=== PATIENT | female | born 1975 | race Caucasian/White ===

== ENCOUNTER 2017-08-03 17:28 | Emergency (ER) | payer MEDICAID ==
[2016-04-04 12:59] VITALS: Wt 96.6 kg
[~2017-08-03 17:28] MED LIST: ACET-1966 PO; ACET500T68 PO; ALB0.5 INH; AMLO-104 PO; AZIT500T47 PO; CEF300 PO; CELEXA PO; DM H180L19 PO; DOCU240C84 PO; DOXY-179 PO; ENA10 PO; GUAI-334 PO; HYDR2TAB4 PO; IBU200 PO; IBUP800T37 PO; LEVO-85 PO; LIB PO; LOR5 PO; METO25TA91 PO; NO MEDS; NOR5/325 PO; OND4 PO; OXYC-373 PO; PER PO; PRED20TA6 PO; PROM-110 PO; TOPI25TA PO; TRAZ150T61 PO
--- NOTE | 2017-08-03 17:38 | ER Report ---
History and Physical Time Seen By MD: 17:36 (ALBAN CULLEN MD) HPI/ROS CHIEF COMPLAINT: Urinary burning constipation HISTORY OF PRESENT ILLNESS: 41-year-old female comes mers apparently was several days of increased frequency and burning of urination she also says she was constipated took [id number] had some diarrhea some left lower quadrant suprapubic tenderness otherwise unremarkable says her urination has had a pungent smell to it as well patient denies any fever chills or sweats no flank or kidney discomfort REVIEW OF SYSTEMS: Respiratory: No cough, no dyspnea. Cardiovascular: No chest pain, no palpitations. Gastrointestinal: Suprapubic tenderness increased frequency urination left lower quadrant pain with diarrhea Musculoskeletal: No back pain. Remainder of the 14 system rev: Yes (ALBAN CULLEN MD) Allergies: Coded Allergies: tramadol (Unverified Allergy, Intermediate, SOB, 08/03/17) Home Meds Active Scripts Metronidazole (FLAGYL) 500 Mg Tablet, 500 MG PO BID for infection, #14 TAB Prov:YASMANI MOYAY Zander DO 08/03/17 Ciprofloxacin Hcl (CIPRO) 500 Mg Tablet, 500 MG PO BID for infection, #14 Prov:YASMANI MOYAY Zander DO 08/03/17 Promethazine Hcl (PROMETHAZINE HCL) 25 Mg Tablet, 25 MG PO Q4H Y for NAUSEA/ VOMITING, #12 TAB Prov:SILVA MOYA DO 08/03/17 Oxycodone Hcl/Acetaminophen (PERCOCET 5-325 MG TABLET) 1 Each Tablet, 1 EACH PO Q4-6H Y for PAIN, #12 Prov:SILVA MOYA DO 08/03/17 Amlodipine Besylate (NORVASC) 10 Mg Tablet, 1 TAB PO QDAY, #30 TAB Prov:LINDSEY LEON MD 04/09/16 Discontinued Reported Medications Docusate Calcium (SURFAK) 240 Mg Capsule, 240 MG PO BID, CAPSULE 04/03/16 Oxycodone Hcl/Acetaminophen (OXYCODONE-ACETAMINOPHEN 5-325) 1 Each Tablet, 1-2 EACH PO Q4H, TAB 04/03/16 Discontinued Scripts Oxycodone Hcl/Acetaminophen (OXYCODONE-ACETAMINOPHEN 5-325) 1 Each Tablet, 1-2 EACH PO Q4H Y for PAIN, #30 TAB TAKE 1-2 TABLET NEEDED FOR PAIN - NO CLOSER THAN EVERY 4 HOURS. Prov:LINDSEY LEON MD 04/09/16 Promethazine Hcl (PROMETHAZINE HCL) 25 Mg Tablet, 25 MG PO Q8H, #20 TAB Prov:LINDSEY LEON MD 04/09/16 Cefdinir 300 Mg Cap (OMNICEF 300 MG CAP (OR EQUIV)) 300 Mg Capsule, 300 MG PO BID, #10 CAPSULE Prov:LINDSEY LEON MD 04/09/16 Ibuprofen (IBUPROFEN) 800 Mg Tablet, 1 TAB PO Q8H, #30 TAB Take with food every 8 hours. Prov:LINDSEY LEON MD 03/23/16 Reviewed Nurses Notes: Yes Old Medical Records Reviewed: Yes (ALBAN CULLEN MD) Hx Smoking: Yes Smoking Status: Current: Every Day Smoker Exposure to Second Hand Smoke?: Yes Hx Substance Use Disorder: No Hx Alcohol Use: Yes (ALBAN CULLEN MD) Constitutional Vital Sign - Last 24 Hours 08/03/17 08/03/17 08/03/17 08/03/17 17:35 17:43 17:58 18:00 Temp 98.3 Pulse 91 86 89 Resp 24 B/P (MAP) 192/121 173/116 (135) Pulse Ox 93 93 91 O2 Delivery Room Air 08/03/17 08/03/17 08/03/17 08/03/17 18:13 18:18 18:30 18:33 Pulse 84 81 79 B/P (MAP) 161/112 (128) Pulse Ox 90 93 96 08/03/17 18:49 Pulse 75 B/P (MAP) 166/126 (139) Pulse Ox 94 O2 Delivery Room Air (SILVA MOYA DO) Physical Exam General Appearance: The patient is alert, has no immediate need for airway protection and no current signs of toxicity. Appears uncomfortable Eyes: Pupils equal and round no injection. Respiratory: Chest is non tender, lungs are clear to auscultation. Cardiac: regular rate and rhythm [ ] Gastrointestinal: Abdomen soft with some mild tenderness in the suprapubic and left lower quadrant region no rebound guarding or masses otherwise unremarkable Musculoskeletal: Neck: Neck is supple and non tender. Extremities have full range of motion and are non tender. Skin: No rashes or lesions. [ ] DIFFERENTIAL DIAGNOSIS: After history and physical exam differential diagnosis was considered for UTI constipation diverticulitis (ALBAN CULLEN MD) Medical Decision Making Data Points Laboratory Hematology Test 08/03/17 17:32 Urine Color Karen Urine Clarity Slightly-cloudy Urine pH 5.0 pH (4.8-9.5) Urine Specific [place] 1.033 Urine Protein 100 mg/dL (NEGATIVE) Urine Glucose (UA) Negative mg/dL (NEGATIVE) Urine Ketones Trace mg/dL (NEGATIVE) Urine Blood Small (NEGATIVE) Urine Nitrite Negative (NEGATIVE) Urine Bilirubin Small (NEGATIVE) Urine Urobilinogen 2.0 mg/dL (0.2-1.9) Urine Leukocyte Esterase Negative (NEGATIVE) Urine RBC 5 /HPF (0-2/HPF) Urine WBC 2 /HPF (0-5/HPF) Urine Squamous Epithelial Cells Many /LPF (</=FEW) Urine Bacteria Negative /HPF (NONE-FEW) Urine Hyaline Casts Few /LPF (NONE-FEW) Urine Mucus Few /HPF (NONE-FEW) Chemistry Test 08/03/17 17:32 Urine Color Karen Urine Clarity Slightly-cloudy Urine pH 5.0 pH (4.8-9.5) Urine Specific [place] 1.033 Urine Protein 100 mg/dL (NEGATIVE) Urine Glucose (UA) Negative mg/dL (NEGATIVE) Urine Ketones Trace mg/dL (NEGATIVE) Urine Blood Small (NEGATIVE) Urine Nitrite Negative (NEGATIVE) Urine Bilirubin Small (NEGATIVE) Urine Urobilinogen 2.0 mg/dL (0.2-1.9) Urine Leukocyte Esterase Negative (NEGATIVE) Urine RBC 5 /HPF (0-2/HPF) Urine WBC 2 /HPF (0-5/HPF) Urine Squamous Epithelial Cells Many /LPF (</=FEW) Urine Bacteria Negative /HPF (NONE-FEW) Urine Hyaline Casts Few /LPF (NONE-FEW) Urine Mucus Few /HPF (NONE-FEW) Urinalysis Test 08/03/17 17:32 Urine Color Karen Urine Clarity Slightly-cloudy Urine pH 5.0 pH (4.8-9.5) Urine Specific [place] 1.033 Urine Protein 100 mg/dL (NEGATIVE) Urine Glucose (UA) Negative mg/dL (NEGATIVE) Urine Ketones Trace mg/dL (NEGATIVE) Urine Blood Small (NEGATIVE) Urine Nitrite Negative (NEGATIVE) Urine Bilirubin Small (NEGATIVE) Urine Urobilinogen 2.0 mg/dL (0.2-1.9) Urine Leukocyte Esterase Negative (NEGATIVE) Urine RBC 5 /HPF (0-2/HPF) Urine WBC 2 /HPF (0-5/HPF) Urine Squamous Epithelial Cells Many /LPF (</=FEW) Urine Bacteria Negative /HPF (NONE-FEW) Urine Hyaline Casts Few /LPF (NONE-FEW) Urine Mucus Few /HPF (NONE-FEW) (YASMANI MOYADominic Fermin DO) EKG/Imaging Imaging X-ray: KUB was obtained. I viewed the images myself on the PACS system. My interpretation of the images is: Nonspecific bowel gas pattern, no evidence of constipation, no evidence of obstruction. The radiologist interpretation had no clinically significant variation from this interpretation. (SILVA MOYA DO) ED Course/Re-evaluation ED Course Care was assumed at shift change with diagnostic KUB pending from Dr. Cullen. Her KUB was unremarkable. Patient was having significant left lower quadrant pain and tenderness. I suspicious she has diverticulitis. She'll be treated with Cipro, Flagyl, Phenergan and Percocet. She is advised a clear liquid diet for 24-48 hours. Patient was advised to follow-up with her primary care doctor if unimproved in 2-3 days. Decision to Disposition Date: Aug 03, 2017 Decision to Disposition Time: 18:38 (SILVA MOYA DO) Depart Departure Latest Vital Signs Vital Signs Date Time Temp Pulse Resp B/P (MAP) Pulse Ox O2 Delivery O2 Flow Rate FiO2 08/03/17 18:49 75 166/126 (139) 94 Room Air 08/03/17 17:35 98.3 24 (SILVA MOYA DO) Impression: Primary Impression: Abdominal pain, left lower quadrant Additional Impression: Diverticulitis Condition: Improved Disposition: HOME OR SELF-CARE Referrals: SAADIA HENRY MD, FARRUKH MD New Scripts Metronidazole (FLAGYL) 500 Mg Tablet 500 MG PO BID for infection, #14 TAB Prov: SILVA MOYA DO 08/03/17 Ciprofloxacin Hcl (CIPRO) 500 Mg Tablet 500 MG PO BID for infection, #14 Prov: SILVA MOYA DO 08/03/17 Promethazine Hcl (PROMETHAZINE HCL) 25 Mg Tablet 25 MG PO Q4H Y for NAUSEA/VOMITING, #12 TAB Prov: SILVA MOYA DO 08/03/17 Oxycodone Hcl/Acetaminophen (PERCOCET 5-325 MG TABLET) 1 Each Tablet 1 EACH PO Q4-6H Y for PAIN, #12 Prov: SILVA MOYA DO 08/03/17 Patient Instructions: Clear Liquid Diet (ED), Diverticulitis (ED) Additional Instructions: Follow clear liquid diet for 24-48 hours and advance to the brat diet for 24 hours Avoid fatty food, greasy food vegetables and dairy products for at least 48 hours Take ibuprofen 200 mg 3 tablets 3 times a day for pain relief Follow-up with your primary care if unimproved in 3-5 days Return to the ER for any worsening Problem Qualifiers ALBAN CULLEN MD Aug 03, 2017 17:38 SILVA MOYA DO Aug 03, 2017 18:39
[2017-08-03] MEDS ORDERED: PROMETHAZINE HCL 25 MG TAB PO ONE (18:40)
[2017-08-03] MEDS ORDERED: CIPROFLOXACIN 500 MG TAB PO ONE (18:40)
[2017-08-03] MEDS ORDERED: METRONIDAZOLE 500 MG TABLET PO ONE (18:40)
[2017-08-03] MEDS ORDERED: PROM-110 PO (18:42)
[2017-08-03] MEDS ORDERED: OXYC-865 PO (18:42)
[2017-08-03] MEDS ORDERED: METR-1 PO (18:42)
[2017-08-03] MEDS ORDERED: CIPR-344 PO (18:42)
--- NOTE | 2017-08-03 18:48 | RADIOLOGY IMAGING REPORT ---
FACILITY: [facility] [place] PATIENT NAME: Veronica Salazar : 1975 MR: [id number] V: [id number] EXAM DATE: ORDERING PHYSICIAN: ALBAN CULLEN TECHNOLOGIST: Location: [facility] [place] Patient: Veronica Salazar : 1975 Visit/Account:[id number] Date of Sevice: 08/03/2017 EXAMINATION: Abdominal radiograph single view HISTORY: Constipation. COMPARISON: CT abdomen and pelvis from 04/03/2016. FINDINGS: 2 AP supine views of the abdomen are obtained. Lines/tubes: None. Bowel gas pattern: Bowel gas is present in nondistended loops of small and large bowel. Small amount of stool in the right side of the colon. Soft tissues: Surgical clips in the right upper quadrant. Bony structures: Negative. Visualized lung bases: Negative. IMPRESSION: 1. Normal bowel gas pattern. 2. Small amount of stool in the right side of the colon. Report Dictated By: Dee Orozco MD at 08/03/2017 6:42 PM Report E-Signed By: Dee Orozco MD at 08/03/2017 6:44 PM WSN:[id number]
[2017-08-03 18:49] VITALS: BP 166/126
== END 2017-08-03 18:55 | disposition home or self-care (01) ==
LOC: ER 17:51
DX: K57.92 Diverticulitis of intestine, part unspecified, without perforation or abscess without bleeding (principal); R10.32 Left lower quadrant pain
CPT/HCPCS: 74018; 81001; 99283; Q0169

== ENCOUNTER 2017-08-24 14:25 | Emergency (ER) | payer MEDICAID ==
[2016-04-04 12:59] VITALS: Wt 83.9 kg
[~2017-08-24 14:25] MED LIST changes: +CIPR-344 PO; +METR-1 PO; +OXYC-865 PO
[2017-08-24] MEDS ORDERED: NS(*) 0.9% 1000 ML BAG 1,000 ML IV ONE (15:05)
[2017-08-24 15:15] LABS: PLATELET COUNT, AUTOMATED 566 K/uL (150-450)
[2017-08-24] MEDS ORDERED: IOPAMIDOL 76% 75 ML INFUS BTL 75 ML ONE (15:21)
--- NOTE | 2017-08-24 15:22 | ER Report ---
History and Physical Time Seen By MD: 14:45 Hx. of Stated Complaint: COMPLETED TREATMENT FOR DIVERTICULITIS APPROX 2 WEEKS AGO. REPORTS THAT PAIN IS ON LEFT SIDE OF ABDOMIN AND FEELS THAT THIS IS A FLARE OF IT AGAIN. HPI/ROS CHIEF COMPLAINT: Abdominal pain HISTORY OF PRESENT ILLNESS: 42 yo female presents to ER with complaints of mid left abdominal pain x 4 days. Describes the pain as dull and achy. States that she had similar pain in July, and was seen in ED and treated for diverticulitis. Pt reports one episode of diarrhea last night otherwise has regular BM. Pt states she vomiting once last night and has since been nauseated. REVIEW OF SYSTEMS: Respiratory: No cough, no dyspnea. Cardiovascular: No chest pain, no palpitations. Gastrointestinal: States vomiting last night, complaints of left abdominal pain. Musculoskeletal: No back pain. Genitourinary: Denies dysuria, frequency, or urgency. 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 08/24/17 Amoxicillin/Pot Clav 875-125 Mg Tab (AUGMENTIN 875-125 TABLET) 1 Each Tablet, 1 TAB PO TID, #42 TAB Prov:NICOLÁS TSE 08/24/17 Amlodipine Besylate (NORVASC) 10 Mg Tablet, 1 TAB PO QDAY, #30 TAB Prov:LINDSEY LEON MD 04/09/16 Discontinued Scripts Metronidazole (FLAGYL) 500 Mg Tablet, 500 MG PO BID for infection, #14 TAB Prov:SILVA MOYA DO 08/03/17 Ciprofloxacin Hcl (CIPRO) 500 Mg Tablet, 500 MG PO BID for infection, #14 Prov:SILVA MOYA DO 08/03/17 Promethazine Hcl (PROMETHAZINE HCL) 25 Mg Tablet, 25 MG PO Q4H Y for NAUSEA/ VOMITING, #12 TAB Prov:SILVA MOYA DO 08/03/17 Oxycodone Hcl/Acetaminophen (PERCOCET 5-325 MG TABLET) 1 Each Tablet, 1 EACH PO Q4-6H Y for PAIN, #12 Prov:SILVA MOYA DO 08/03/17 Past Medical/Surgical History Patient has a past medical history of seizures, migraine, hypertension, bronchitis, respiratory failure, cholecystitis, appendicitis, reflux, uterine cyst, back pain, marijuana abuse, alcohol abuse, depression, eating disorder. Patient has a surgical history of cholecystectomy, appendectomy, hysterectomy, tubal ligation. Patient has a family medical history of cancer. Reviewed Nurses Notes: Yes Hx Smoking: Yes Smoking Status: Current: Every Day Smoker Exposure to Second Hand Smoke?: Yes Hx Substance Use Disorder: Yes (Previous marijuana use age 25) Hx Alcohol Use: Yes Constitutional Vital Sign - Last 24 Hours 08/24/17 08/24/17 08/24/17 08/24/17 14:37 14:40 14:46 15:00 Temp 97.9 Pulse 89 84 Resp 18 B/P (MAP) 162/137 162/137 (145) 170/129 (143) 159/108 (125) Pulse Ox 95 92 O2 Delivery Room Air 08/24/17 08/24/17 08/24/17 08/24/17 15:15 15:45 16:00 16:15 Pulse 74 B/P (MAP) 151/127 (135) 152/109 (123) 178/128 (145) 157/113 (128) Pulse Ox 97 08/24/17 08/24/17 08/24/17 08/24/17 16:30 16:49 17:00 17:15 Pulse 73 74 B/P (MAP) 150/114 (126) 155/127 (136) 174/117 (136) 166/109 (128) Pulse Ox 92 95 Intake and Output 08/24/17 08/24/17 08/25/17 15:00 23:00 07:00 Intake Total 1100 ml Balance 1100 ml Physical Exam General Appearance: The patient is alert, has no immediate need for airway protection and no current signs of toxicity. Eyes: Pupils equal and round no injection. Respiratory: Chest is non tender, lungs diminished throughout, auscultated rhonchi to right lower lobe. Cardiac: regular rate and rhythm Gastrointestinal: Abdomen is soft and tender with light palpation and guarding of left upper quadrant, no masses, organomegaly, bowel sounds normal. Negative CVA tenderness. Musculoskeletal: Full active and passive ROM of all joints. Neck: Neck is supple and non tender. Extremities have full range of motion and are non tender. Skin: No rashes or lesions. DIFFERENTIAL DIAGNOSIS: After history and physical exam differential diagnosis was considered for acute diverticulitis, bowel obstruction, Medical Decision Making Data Points Result Diagram: 08/24/17 1445 08/24/17 1445 Laboratory Hematology Test 08/24/17 14:34 08/24/17 14:45 Urine Color Karen Urine Clarity Slightly-cloudy Urine pH 5.0 pH (4.8-9.5) Urine Specific [place] 1.026 Urine Protein 100 mg/dL (NEGATIVE) Urine Glucose (UA) Negative mg/dL (NEGATIVE) Urine Ketones Trace mg/dL (NEGATIVE) Urine Blood Small (NEGATIVE) Urine Nitrite Negative (NEGATIVE) Urine Bilirubin Negative (NEGATIVE) Urine Urobilinogen 4.0 mg/dL (0.2-1.9) Urine Leukocyte Esterase Negative (NEGATIVE) Urine RBC 5 /HPF (0-2/HPF) Urine WBC 3 /HPF (0-5/HPF) Urine Squamous Epithelial Cells Many /LPF (</=FEW) Urine Bacteria Negative /HPF (NONE-FEW) Urine Mucus Few /HPF (NONE-FEW) Red Blood Count 6.43 M/uL (4.17-5.56) Mean Corpuscular Volume 86.8 fL (80.0-96.0) Mean Corpuscular Hemoglobin 30.4 pg (26.0-33.0) Mean Corpuscular Hemoglobin Concent 35.0 g/dL (32.0-36.0) Red Cell Distribution Width 14.5 % (11.5-14.5) Mean Platelet Volume 8.4 fL (7.2-11.1) Neutrophils (%) (Auto) 69.6 % (39.4-72.5) Lymphocytes (%) (Auto) 20.1 % (17.6-49.6) Monocytes (%) (Auto) 7.8 % (4.1-12.4) Eosinophils (%) (Auto) 2.1 % (0.4-6.7) Basophils (%) (Auto) 0.4 % (0.3-1.4) Nucleated RBC Relative Count (auto) 0.1 /100WBC Neutrophils # (Auto) 6.6 K/uL (2.0-7.4) Lymphocytes # (Auto) 1.9 K/uL (1.3-3.6) Monocytes # (Auto) 0.7 K/uL (0.3-1.0) Eosinophils # (Auto) 0.2 K/uL (0.0-0.5) Basophils # (Auto) 0.0 K/uL (0.0-0.1) Nucleated RBC Absolute Count (auto) 0.01 K/uL Peripheral Blood Smear Yes Y/N Sodium Level 137 mmol/L (137-145) Potassium Level 3.0 mmol/L (3.5-5.0) Chloride Level 97 mmol/L (98-107) Carbon Dioxide Level 26 mmol/L (22-31) Blood Urea Nitrogen 6 mg/dl (7-18) Creatinine 0.60 mg/dl (0.52-1.04) Glomerular Filtration Rate Calc > 60.0 Random Glucose 103 mg/dl (75-110) Calcium Level 9.7 mg/dl (8.4-10.2) Total Bilirubin 0.9 mg/dl (0.2-1.3) Aspartate Amino Transf (AST/SGOT) 50 U/L (0-35) Alanine Aminotransferase (ALT/SGPT) 42 U/L (0-56) Alkaline Phosphatase 96 U/L (0-126) Total Protein 9.0 gm/dl (6.3-8.2) Albumin 4.5 g/dl (3.5-5.0) Amylase Level 63 U/L (0-110) Lipase 41 U/L (23-300) Helicobacter pylori IgG Antibody Negative (NEGATIVE) Chemistry Test 08/24/17 14:34 08/24/17 14:45 Urine Color Karen Urine Clarity Slightly-cloudy Urine pH 5.0 pH (4.8-9.5) Urine Specific [place] 1.026 Urine Protein 100 mg/dL (NEGATIVE) Urine Glucose (UA) Negative mg/dL (NEGATIVE) Urine Ketones Trace mg/dL (NEGATIVE) Urine Blood Small (NEGATIVE) Urine Nitrite Negative (NEGATIVE) Urine Bilirubin Negative (NEGATIVE) Urine Urobilinogen 4.0 mg/dL (0.2-1.9) Urine Leukocyte Esterase Negative (NEGATIVE) Urine RBC 5 /HPF (0-2/HPF) Urine WBC 3 /HPF (0-5/HPF) Urine Squamous Epithelial Cells Many /LPF (</=FEW) Urine Bacteria Negative /HPF (NONE-FEW) Urine Mucus Few /HPF (NONE-FEW) White Blood Count 9.5 k/uL (4.5-11.0) Red Blood Count 6.43 M/uL (4.17-5.56) Hemoglobin 19.5 g/dL (12.0-16.0) Hematocrit 55.8 % (34.0-47.0) Mean Corpuscular Volume 86.8 fL (80.0-96.0) Mean Corpuscular Hemoglobin 30.4 pg (26.0-33.0) Mean Corpuscular Hemoglobin Concent 35.0 g/dL (32.0-36.0) Red Cell Distribution Width 14.5 % (11.5-14.5) Platelet Count 566 K/uL (150-450) Mean Platelet Volume 8.4 fL (7.2-11.1) Neutrophils (%) (Auto) 69.6 % (39.4-72.5) Lymphocytes (%) (Auto) 20.1 % (17.6-49.6) Monocytes (%) (Auto) 7.8 % (4.1-12.4) Eosinophils (%) (Auto) 2.1 % (0.4-6.7) Basophils (%) (Auto) 0.4 % (0.3-1.4) Nucleated RBC Relative Count (auto) 0.1 /100WBC Neutrophils # (Auto) 6.6 K/uL (2.0-7.4) Lymphocytes # (Auto) 1.9 K/uL (1.3-3.6) Monocytes # (Auto) 0.7 K/uL (0.3-1.0) Eosinophils # (Auto) 0.2 K/uL (0.0-0.5) Basophils # (Auto) 0.0 K/uL (0.0-0.1) Nucleated RBC Absolute Count (auto) 0.01 K/uL Peripheral Blood Smear Yes Y/N Glomerular Filtration Rate Calc > 60.0 Calcium Level 9.7 mg/dl (8.4-10.2) Total Bilirubin 0.9 mg/dl (0.2-1.3) Aspartate Amino Transf (AST/SGOT) 50 U/L (0-35) Alanine Aminotransferase (ALT/SGPT) 42 U/L (0-56) Alkaline Phosphatase 96 U/L (0-126) Total Protein 9.0 gm/dl (6.3-8.2) Albumin 4.5 g/dl (3.5-5.0) Amylase Level 63 U/L (0-110) Lipase 41 U/L (23-300) Helicobacter pylori IgG Antibody Negative (NEGATIVE) Urinalysis Test 08/24/17 14:34 Urine Color Karen Urine Clarity Slightly-cloudy Urine pH 5.0 pH (4.8-9.5) Urine Specific [place] 1.026 Urine Protein 100 mg/dL (NEGATIVE) Urine Glucose (UA) Negative mg/dL (NEGATIVE) Urine Ketones Trace mg/dL (NEGATIVE) Urine Blood Small (NEGATIVE) Urine Nitrite Negative (NEGATIVE) Urine Bilirubin Negative (NEGATIVE) Urine Urobilinogen 4.0 mg/dL (0.2-1.9) Urine Leukocyte Esterase Negative (NEGATIVE) Urine RBC 5 /HPF (0-2/HPF) Urine WBC 3 /HPF (0-5/HPF) Urine Squamous Epithelial Cells Many /LPF (</=FEW) Urine Bacteria Negative /HPF (NONE-FEW) Urine Mucus Few /HPF (NONE-FEW) EKG/Imaging Imaging COMPUTED TOMOGRAPHY OF THE Abdomen and Pelvis with CONTRAST INDICATION: Abdominal pain. TECHNIQUE: Contiguous axial 3.[address] images were obtained through the abdomen and pelvis after the administration of 75 cc [id number]-[id number]. Coronal and sagittal reformatted images were submitted. COMPARISON: CT of November 22, 2008. FINDINGS: Lung bases: The lung bases are clear Liver and hepatic vasculature: No focal liver lesion. Gallbladder and bile ducts: Surgically absent gallbladder. Spleen: Normal Pancreas: Normal Adrenals: Normal Kidneys, ureters and bladder: Normal Retroperitoneum and aorta: Minimal atherosclerosis of the aorta. GI tract, mesentery and peritoneum: Diverticulitis of the left colon with moderate inflammation in the adjacent mesentery but no perforation or abscess. Series 2 image 81. There are innumerable sigmoid diverticula. Uterus and adnexa: No abnormal mass or fluid collection. Bones and soft tissues: No acute osseous abnormality. Moderate pubic symphysis arthrosis. IMPRESSION: Uncomplicated diverticulitis of the descending colon. One of the following dose optimization techniques was utilized in the performance of this exam: Automated exposure control; adjustment of the mA and/ or kV according to the patient's size; or use of an iterative reconstruction technique. Specific details can be referenced in the facility's radiology CT exam operational policy. Report Dictated By: Katie Haro MD at 08/24/2017 3:58 PM Report E-Signed By: Katie Haro MD at 08/24/2017 4:02 PM 2 VIEWS CHEST INDICATION: Cough. History of smoking. COMPARISON: 03/28/2016. FINDINGS: Cardiomediastinal silhouette and pulmonary vessels within normal limits. There is no focal infiltrate or lobar consolidation. There is no pneumothorax or pleural effusion. No nodule. Upper abdomen is unremarkable. Contrast in the urinary system mostly from recent exam. No acute bony abnormality. IMPRESSION: 1. No acute cardiopulmonary process. Report Dictated By: Wilber Valladares at 08/24/2017 3:50 PM Report E-Signed By: Wilber Valladares at 08/24/2017 3:52 PM ED Course/Re-evaluation ED Course Patient was admitted to exam room, history and physical were obtained. Differential diagnoses were considered. On examination patient had tenderness to the left abdomen. An IV was started, CBC, CMP, urinalysis were obtained. Lab results were unremarkable. CT scan of abdomen and pelvis was done which showed an uncomplicated diverticulitis of the descending colon. Discussed findings with patient. Due to the recent treatment of diverticulitis with no resolution I did discuss the case with Dr. Lou. He recommended changing her to a different antibiotic, and having her follow-up as outpatient. She is to return to emergency room if condition worsens. I discussed this with the patient. Patient did receive a 3 g dose of Unasyn here in the emergency room. We will also have her start taking Augmentin 875/125 3 times a day 14 days. We'll also discharge her home with medication for nausea as well as limited supply of pain medication. Patient verbalized understanding and agreement with plan. Decision to Disposition Date: Aug 24, 2017 Decision to Disposition Time: 17:38 Depart Departure Latest Vital Signs Vital Signs Date Time Temp Pulse Resp B/P (MAP) Pulse Ox O2 Delivery O2 Flow Rate FiO2 08/24/17 17:15 166/109 (128) 08/24/17 17:00 74 95 08/24/17 14:37 97.9 18 Room Air Impression: Primary Impression: Diverticulitis Condition: Improved Disposition: HOME OR SELF-CARE New Scripts Ondansetron (ZOFRAN ODT) 4 Mg Tab.rapdis 4 MG PO Q6H Y for NAUSEA/VOMITING, #20 TAB.RPETTY Prov: NICOLÁS TES 08/24/17 Oxycodone Hcl/Acetaminophen (PERCOCET 5-325 MG TABLET) 1 Each Tablet 1 EACH PO Q4-6H Y for PAIN, #20 TAB Prov: NICOLÁS TSE 08/24/17 Amoxicillin/Pot Clav 875-125 Mg Tab (AUGMENTIN 875-125 TABLET) 1 Each Tablet 1 TAB PO TID, #42 TAB Prov: NICOLÁS TSE 08/24/17 Patient Instructions: Diverticulitis (ED) Additional Instructions: Limit activity by pain. Get plenty of rest. Increase fluid intake. Take the antibiotics as directed. If condition worsens, return to the ER. Follow up with Dr. Lou in the next week. NICOLÁS TSE Aug 24, 2017 15:22
--- NOTE | 2017-08-24 15:57 | RADIOLOGY IMAGING REPORT ---
FACILITY: [facility] PATIENT NAME: Veronica Salazar : 1975 MR: [id number] V: [id number] EXAM DATE: ORDERING PHYSICIAN: NICOLÁS TSE TECHNOLOGIST: Location: [facility] - [place] Patient: Veronica Salazar : 1975 Visit/Account:[id number] Date of Sevice: 08/24/2017 2 VIEWS CHEST INDICATION: Cough. History of smoking. COMPARISON: 03/28/2016. FINDINGS: Cardiomediastinal silhouette and pulmonary vessels within normal limits. There is no focal infiltrate or lobar consolidation. There is no pneumothorax or pleural effusion. No nodule. Upper abdomen is unremarkable. Contrast in the urinary system mostly from recent exam. No acute bony abnormality. IMPRESSION: 1. No acute cardiopulmonary process. Report Dictated By: Wilber Valladares at 08/24/2017 3:50 PM Report E-Signed By: Wilber Valladares at 08/24/2017 3:52 PM WSN:[id number]
--- NOTE | 2017-08-24 16:05 | RADIOLOGY IMAGING REPORT ---
[facility] PATIENT NAME: Veronica Salazar : 1975 MR: [id number] V: [id number] EXAM DATE: ORDERING PHYSICIAN: NICOLÁS TSE TECHNOLOGIST: Location: [facility] Patient: Veronica Salazar : 1975 Visit/Account:[id number] Date of Sevice: 08/24/2017 COMPUTED TOMOGRAPHY OF THE Abdomen and Pelvis with CONTRAST INDICATION: Abdominal pain. TECHNIQUE: Contiguous axial 3.[address] images were obtained through the abdomen and pelvis after the administration of 75 cc Isovue-370. Coronal and sagittal reformatted images were submitted. COMPARISON: CT of November 22, 2008. FINDINGS: Lung bases: The lung bases are clear Liver and hepatic vasculature: No focal liver lesion. Gallbladder and bile ducts: Surgically absent gallbladder. Spleen: Normal Pancreas: Normal Adrenals: Normal Kidneys, ureters and bladder: Normal Retroperitoneum and aorta: Minimal atherosclerosis of the aorta. GI tract, mesentery and peritoneum: Diverticulitis of the left colon with moderate inflammation in th e adjacent mesentery but no perforation or abscess. Series 2 image 81. There are innumerable sigmoid diverticula. Uterus and adnexa: No abnormal mass or fluid collection. Bones and soft tissues: No acute osseous abnormality. Moderate pubic symphysis arthrosis. IMPRESSION: Uncomplicated diverticulitis of the descending colon. One of the following dose optimization techniques was utilized in the performance of this exam: Autom ated exposure control; adjustment of the mA and/or kV according to the patient's size; or use of an i terative reconstruction technique. Specific details can be referenced in the facility's radiology C T exam operational policy. Report Dictated By: Katie Haro MD at 08/24/2017 3:58 PM Report E-Signed By: Katie Haro MD at 08/24/2017 4:02 PM WSN:[id number]
[2017-08-24] MEDS ORDERED: MORPHINE 4 MG/ML SDV IVP ONE (16:55)
[2017-08-24] MEDS ORDERED: AMPICILLIN/SULBACT (*) 3 GM VL 3 GM in NS(*) 0.9% 100 ML BAG 100 ML IVPB ONE (17:05)
[2017-08-24 17:15] VITALS: BP 166/109
[2017-08-24] MEDS ORDERED: ONDA4TAB PO (17:36)
[2017-08-24] MEDS ORDERED: AMOX-559 PO (17:36)
[2017-08-24] MEDS ORDERED: OXYC-865 PO (17:36)
== END 2017-08-24 18:06 | disposition home or self-care (01) ==
LOC: ER 14:26
DX: K57.32 Diverticulitis of large intestine without perforation or abscess without bleeding (principal)
CPT/HCPCS: 71046; 74177; 81001; 82150; 83690; 85025; 86677; 96361; 96365; 96375; 99284; J0295; J2270; J7030; J7050; Q9967; 82040; 82247; 82310; 82374; 82435; 82565; 82947; 84075; 84132; 84155; 84295; 84450; 84460; 84520

== ENCOUNTER 2017-09-03 15:16 | Inpatient (IN) | payer MEDICAID ==
[~2017-09-03] VITALS: Ht 154.9 cm; Wt 82.6 kg
[~2017-09-03 15:16] MED LIST changes: +AMOX-559 PO; +ONDA4TAB PO
[2017-09-03 15:30] VITALS: BP 174/137
[2017-09-03] MEDS ORDERED: NALOXONE HCL 0.4 MG/ML VIAL IVP PRN (15:50)
[2017-09-03] MEDS: NORMOSOL R SOLN(*) 1000 ML BAG 1,000 ML IV PRN (16:07)
[2017-09-03] MEDS: PIPERACILLIN/TAZO*3.375GM VIAL 3.375 GM in NS(*) 0.9% 100 ML ADDVANT BAG 100 ML IVPB SCH ×2 (16:08→21:16)
[2017-09-03] MEDS: MORPHINE 1 MG/ML 30 ML PCA IV PRN (16:12)
[2017-09-03 16:17] LABS: PLATELET COUNT, AUTOMATED 363 K/uL (150-450)
[2017-09-03] MEDS ORDERED: ONDANSETRON 4 MG/2 ML VIAL IVP ONE (16:20)
[2017-09-03] MEDS ORDERED: ONDANSETRON 4 MG/2 ML VIAL ONE (16:22)
[2017-09-03] MEDS ORDERED: IOPAMIDOL 76% 75 ML INFUS BTL 75 ML ONE (16:34)
--- NOTE | 2017-09-03 17:00 | RADIOLOGY IMAGING REPORT ---
FACILITY: [facility] PATIENT NAME: Veronica Salazar : 1975 MR: [id number] V: [id number] EXAM DATE: ORDERING PHYSICIAN: NARESH WOOD TECHNOLOGIST: Location: [facility] Patient: Veronica Salazar : 1975 Visit/Account:[id number] Date of Sevice: 09/03/2017 ABDOMEN/PELVIS WITH CONTRAST HISTORY: diverticulitis, lower abdomen pain x1 month TECHNIQUE: Following administration of IV contrast contiguous axial images acquired through the abdom en/pelvis. Coronal and sagittal reformatting also performed. Dose Lowering Technique One of the following dose optimization techniques was utilized in the performance of this exam: Autom ated exposure control; adjustment of the mA and/or kV according to the patient's size; or use of an i terative reconstruction technique. Specific details can be referenced in the facility's radiology C T exam operational policy. CONTRAST: 75 mL Isovue-370 COMPARISON: August 24, 2017 FINDINGS: Visualized lung bases: There are scattered groundglass opacities in the lower lung rivera which may b e secondary to mild dependent change or developing infectious/inflammatory process Hepatobiliary: Post surgical changes from a cholecystectomy Spleen: Negative. Adrenals: Negative. Pancreas: Negative. Kidneys ureters or bladder: Negative. Genitalia: Hysterectomy GI: Scattered diverticula seen throughout the colon most prominent in the descending colon. There h as been almost complete clearing of the inflammatory changes seen adjacent to the descending colon fr om prior diverticulitis. Only minimal fat stranding remains in this location Moderate hiatal hernia with fluid noted in the distal esophagus likely related to gastroesophageal re flux Vessels/spaces/nodes: Negative. Bones/soft tissues: Periumbilical hernia containing fat Additional findings: None pertinent. IMPRESSION: Scattered diverticula are seen throughout the colon most prominent in the descending colon. There morrell s been almost complete clearing of the inflammatory change seen adjacent to the descending colon from prior diverticulitis. Only minimal fat stranding remains in this location Moderate hiatal hernia with fluid noted in the distal esophagus likely related to gastroesophageal re flux Periumbilical hernia containing fat Scattered groundglass opacities in the lower lung rivera which may be secondary to mild dependent suraj nge or developing infectious/inflammatory process Report Dictated By: Hayley Iqbal MD at 09/03/2017 4:48 PM Report E-Signed By: Hayley Iqbal MD at 09/03/2017 4:57 PM WSN:[email or web address]
[2017-09-03 18:16] VITALS: BP 168/114
--- NOTE | 2017-09-03 18:56 | General Surgery Progress Note ---
Subjective Progress Notes Subjective pt with severe left lower quadrant pain Physical Exam Vital Signs Date Time Temp Pulse Resp B/P (MAP) Pulse Ox O2 Delivery O2 Flow Rate FiO2 09/03/17 18:16 97.9 63 24 168/114 (132) 96 Nasal Cannula 2.0 Intake and Output 09/04/17 07:00 Intake Total 104 ml Balance 104 ml Intake IV Total 104 ml # Voids 2 General Appearance: Alert, Awake GI: Other (tender with guarding in the left lower quadrant) Result Diagram: 09/03/17 1605 09/03/17 1659 Assessment and Plan Problems: (1) Diverticulitis Status: Acute Assessment & Plan: her picture is a little confusing. her pain and tenderness indicate ongoing diverticulitis but her wbc is normal and ct suggests significant improvement since last ct. will treat with iv antibiotics and analgesia and see how she progresses. Copies to: NARESH WOOD MD Exam Sepsis Risk: No Definite Risk NARESH WOOD MD Sep 03, 2017 18:56
[2017-09-03] MEDS: ACETAMINOPHEN(*)1000 MG/100 ML 100 ML IVPB SCH (19:57)
[2017-09-03] MEDS: ONDANSETRON 4 MG/2 ML VIAL IVP PRN (21:16)
[2017-09-03] MEDS ORDERED: NICOTINE CARTRIDGE 1 EA PO PRN (22:20)
[2017-09-03] MEDS ORDERED: NICOTINE CARTRIDGE 1 EA PO ONE (22:49)
[2017-09-03] MEDS ORDERED: NICOTINE INH SYSTEM 10 MG/INH INH ONE (22:49)
[2017-09-03] MEDS: NICOTINE INH SYSTEM 10 MG/INH INH PRN (22:55)
[2017-09-03 23:07] VITALS: BP 172/115
[2017-09-04] VITALS (8 sets, daily range): BP systolic 126–183; BP diastolic 87–120; Ht 154.9 cm; Wt 82.6 kg
[2017-09-04] MEDS: NORMOSOL R SOLN(*) 1000 ML BAG 1,000 ML IV PRN (00:55)
[2017-09-04] MEDS: ONDANSETRON 4 MG/2 ML VIAL IVP PRN (01:42)
[2017-09-04] MEDS: MORPHINE 1 MG/ML 30 ML PCA IV PRN (01:43)
[2017-09-04] MEDS: ACETAMINOPHEN(*)1000 MG/100 ML 100 ML IVPB SCH ×2 (02:35→11:06)
[2017-09-04] MEDS ORDERED: LABETALOL HCL 100 MG/20ML VIAL IVP ONE (02:55)
[2017-09-04] MEDS: PROMETHAZINE 25 MG/ML 1 ML AMP IVP PRN ×2 (03:43→09:29)
[2017-09-04] MEDS: PIPERACILLIN/TAZO*3.375GM VIAL 3.375 GM in NS(*) 0.9% 100 ML ADDVANT BAG 100 ML IVPB SCH ×4 (04:36→21:25)
[2017-09-04] MEDS ORDERED: NORMOSOL R SOLN(*) 1000 ML BAG 1,000 ML IV PRN (06:56)
--- NOTE | 2017-09-04 07:03 | General Surgery Progress Note ---
Subjective Progress Notes Subjective less pain but has intermittent nausea and emesis, she does smoke and takes ibuprofen regularly for her arthritis Physical Exam Vital Signs Date Time Temp Pulse Resp B/P (MAP) Pulse Ox O2 Delivery O2 Flow Rate FiO2 09/04/17 06:35 20 09/04/17 04:39 55 162/101 (121) 95 Nasal Cannula 2.0 09/04/17 02:37 97.7 General Appearance: Alert, Awake, No Acute Distress GI: Other (less tender) Result Diagram: 09/03/17 1605 09/03/17 1659 Assessment and Plan Problems: (1) Diverticulitis Status: Acute Assessment & Plan: her picture is a little confusing. her pain and tenderness indicate ongoing diverticulitis but her wbc is normal and ct suggests significant improvement since last ct. will treat with iv antibiotics and analgesia and see how she progresses. 09/04/17 will treat her for possible ulcer as a cause for her nausea and vomiting. try increasing diet. will consult hospitalist for htn Exam Sepsis Risk: No Definite Risk NARESH WOOD MD Sep 04, 2017 07:03
[2017-09-04] MEDS: SUCRALFATE 1 GM TAB PO SCH ×4 (07:44→21:25)
--- NOTE | 2017-09-04 08:55 | HISTORY AND PHYSICAL ---
DATE OF ADMISSION: September 03, 2017 CHIEF COMPLAINT Left lower quadrant pain. HISTORY OF PRESENT ILLNESS This is a 42-year-old female with left lower quadrant pain since the 03 of August. She was seen in the Emergency Room and treated for diverticulitis. She was treated with oral antibiotics. She initially improved, but then later on had a relapse. She was treated again with antibiotics. She was last seen in the Emergency Room about 10 days ago, and she was placed on Augmentin at that time. She states her pain has not resolved, and she is still quite uncomfortable. She has some nausea, occasional emesis, the pain in the left lower quadrant. She says her bowels have been working. She has not noticed any blood. ALLERGIES She has an allergy to ULTRAM. CURRENT MEDICATIONS * She is currently on lisinopril 10 mg a day. PAST MEDICAL HISTORY/OPERATIONS * She has had an appendectomy. * . * Cholecystectomy. * Hysterectomy. REVIEW OF SYSTEMS Significant for history of hypertension. No cardiac disease, pulmonary disease , liver or kidney disease. No diabetes. No history of deep vein thrombosis. PHYSICAL EXAMINATION GENERAL: A 42-year-old female who is in a mild amount of abdominal distress. ABDOMEN: Her abdomen is tender with guarding in the left lower quadrant. IMPRESSION * Diverticulitis. PLAN Will admit her to the hospital, start her on IV anbiotics. Will obtain a CBC and a chemistry panel. Will repeat her CT scan to evaluate for any abscess formation. Because of this recurrent, persistent nature, she may well need a colectomy to get this to resolve. NETO
[2017-09-04] MEDS ORDERED: PANTOPRAZOLE SOD 40 MG TABEC PO SCH (09:00)
[2017-09-04] MEDS ORDERED: amLODIPine BESYL(*) 5 MG TAB PO SCH (09:00)
[2017-09-04] MEDS: DOCUSATE SODIUM 100 MG CAP PO SCH ×2 (09:04→21:25)
[2017-09-04] MEDS: PANTOPRAZOLE SOD 40 MG IV VIAL IVP SCH ×2 (09:05→21:25)
[2017-09-04] MEDS: DICYCLOMINE HCL 10 MG CAP PO SCH ×4 (09:07→21:25)
[2017-09-04] MEDS: NICOTINE INH SYSTEM 10 MG/INH INH PRN ×2 (10:31→14:49)
--- NOTE | 2017-09-04 13:24 | Hospitalist Consultation ---
History of Present Illness Requesting Physician Dr. Lou Reason for Consult HTN Chief Complaint Abdominal pain History of Present Illness 42yo female currently admitted to surgical service with abdominal pain/ diverticulitis. She has a long history of HTN, nocturnal hypoxia, tobacco use. She reports being recently started on lisinopril 10mg daily for HTN by a physician at the [facility] (this is with whom she plans on following up). The record reflects amlodipine 10mg daily, but she denies ever having been on the amlodipine. She denies any history of heart or lung disease. She was told she had nocturnal hypoxia and previously used nighttime oxygen, but has not done so for several years. Since hospitalization she has been on amlodipine 10mg daily. Her BPs have been moderately elevated. History Problems: (1) Reactive airway disease Status: Chronic (2) Essential hypertension Status: Chronic (3) Diverticulitis Status: Acute Comment: her picture is a little confusing. her pain and tenderness indicate ongoing diverticulitis but her wbc is normal and ct suggests significant improvement since last ct. will treat with iv antibiotics and analgesia and see how she progresses. 09/04/17 will treat her for possible ulcer as a cause for her nausea and vomiting. try increasing diet. will consult hospitalist for htn (4) Status post laparoscopic assisted vaginal hysterectomy Status: Chronic (5) Cigarette smoker Status: Chronic Home Meds Active Scripts Ondansetron (ZOFRAN ODT) 4 Mg Tab.rapdis, 4 MG PO Q6H Y for NAUSEA/VOMITING, # 20 TAB.PRETTY Prov:NICOLÁS TSE 08/24/17 Oxycodone Hcl/Acetaminophen (PERCOCET 5-325 MG TABLET) 1 Each Tablet, 1 EACH PO Q4-6H Y for PAIN, #20 TAB Prov:NICOLÁS TSE 08/24/17 Amoxicillin/Pot Clav 875-125 Mg Tab (AUGMENTIN 875-125 TABLET) 1 Each Tablet, 1 TAB PO TID, #42 TAB Prov:NICOLÁS TSE 08/24/17 Amlodipine Besylate (NORVASC) 10 Mg Tablet, 1 TAB PO QDAY, #30 TAB Prov:LINDSEY LEON MD 04/09/16 Allergies: Coded Allergies: tramadol (Unverified Allergy, Intermediate, SOB, 08/24/17) Patient History: FHx: brain tumor MOTHER Psychiatric condition MOTHER Psychiatric hospitalization MOTHER Hx Smoking: Yes Smoking Status: Current: Every Day Smoker Exposure to Second Hand Smoke?: Yes Caffeine Intake: Soda Caffeine/Cups Per Day: 3 Hx Alcohol Use: Yes Hx Substance Use Disorder: Yes (Previous marijuana use age 25) Social Drug Use: Occasional Social Drugs: Marijuana Amount Of Social Drug/s Used: trial basis for LSD- used 3x Review of Systems Cardiovascular: No Chest Pain Respiratory: Cough, No Shortness of Breath Exam Vital Signs Vital Signs Date Time Temp Pulse Resp B/P (MAP) Pulse Ox O2 Delivery O2 Flow Rate FiO2 09/04/17 10:34 98.3 69 16 135/107 (116) 93 Nasal Cannula 2.0 General Appearance: Alert, Awake Neuro: No Gross deficits Eyes: PERRLA Neck: Other (no bruits/no JVD) Cardiovascular: Regular Rate and Rhythm, No Edema Respiratory: Clear to Auscultation Extremities: Warm, Perfused Psych: Alert & Oriented X3 Medical Decision Making Data Points Result Diagram: 09/03/17 1605 09/03/17 1985 Assessment and Plan Problems: (1) Essential hypertension Status: Chronic Assessment & Plan: At this point, would resume her lisinopril 10mg daily and stop the amlodipine. Would plan on monitoring her BPs while she is here. I advised her after discharge she would need to follow up with her PCP regarding her BP (and possible DIMA/nocturnal hypoxia). She will most likely need some further modifications of her regimen, but this could be done as an outpatient. (2) Hypoxia Status: Acute Assessment & Plan: She may have DIMA or possibly just nocturnal hypoxia. I advised her she would need to follow up with her PCP very closely regarding this and may need to resume nighttime oxygen. She may need a sleep study as well. Venous Thromboembolism Antithrombotics Is Pt On Any Antithrombotics?: No Exam Sepsis Risk: No Definite Risk SAMIRA CRAIG MD Sep 04, 2017 13:24
[2017-09-04] MEDS: KETOROLAC 30 MG/ML VIAL IVP SCH (21:25)
[2017-09-05] MEDS: KETOROLAC 30 MG/ML VIAL IVP SCH ×4 (03:35→21:03)
[2017-09-05] MEDS: PIPERACILLIN/TAZO*3.375GM VIAL 3.375 GM in NS(*) 0.9% 100 ML ADDVANT BAG 100 ML IVPB SCH ×4 (03:36→21:29)
[2017-09-05 03:40] VITALS: BP 143/90
[2017-09-05] MEDS: SUCRALFATE 1 GM TAB PO SCH ×4 (05:31→21:02)
--- NOTE | 2017-09-05 06:32 | Hospitalist Progress Note ---
Subjective Progress Notes Subjective BPs have been slightly improved. We discussed the amlodipine vs lisinopril. Physical Exam Vital Signs Date Time Temp Pulse Resp B/P (MAP) Pulse Ox O2 Delivery O2 Flow Rate FiO2 09/05/17 03:40 98.0 52 18 143/90 (107) 93 Nasal Cannula 1.0 General Appearance: Alert, Awake Result Diagram: 09/03/17 1605 09/03/17 6889 Assessment and Plan Problems: (1) Essential hypertension Status: Chronic Assessment & Plan: At this point, she would like to resume her lisinopril 10mg daily and stop the amlodipine. Will plan on monitoring her BPs while she is here. I advised her after discharge she would need to follow up with her PCP regarding her BP (and possible DIMA/nocturnal hypoxia). She will most likely need some further modifications of her regimen, but this could be done as an outpatient. (2) Hypoxia Status: Acute Assessment & Plan: She may have DIMA or possibly just nocturnal hypoxia. I advised her she would need to follow up with her PCP very closely regarding this and may need to resume nighttime oxygen. She may need a sleep study as well. Exam Sepsis Risk: No Definite Risk SAMIRA CRAIG MD Sep 05, 2017 06:32
[2017-09-05 07:19] VITALS: BP 160/107
--- NOTE | 2017-09-05 08:29 | General Surgery Progress Note ---
Subjective Progress Notes Subjective pt complains of low back pain, pain in the suprapubic area. she has had normal bms. voiding ok. no nausea or vomiting. she says she passed some blood per rectum. Physical Exam Vital Signs Date Time Temp Pulse Resp B/P (MAP) Pulse Ox O2 Delivery O2 Flow Rate FiO2 09/05/17 07:19 97.1 59 24 160/107 (124) 93 09/05/17 03:40 Nasal Cannula 1.0 Result Diagram: 09/03/17 1605 09/03/17 6608 Assessment and Plan Problems: (1) Diverticulitis Status: Acute Assessment & Plan: her picture is a little confusing. her pain and tenderness indicate ongoing diverticulitis but her wbc is normal and ct suggests significant improvement since last ct. will treat with iv antibiotics and analgesia and see how she progresses. 09/04/17 will treat her for possible ulcer as a cause for her nausea and vomiting. try increasing diet. will consult hospitalist for htn 09/05/17 will check a ua. will probably need a colonoscopy. will give her a bowel prep today. vital signs, lab and ct look good. Exam Sepsis Risk: No Definite Risk NARESH WOOD MD Sep 05, 2017 08:28
[2017-09-05] MEDS: DOCUSATE SODIUM 100 MG CAP PO SCH ×2 (08:58→21:02)
[2017-09-05] MEDS: LISINOPRIL 10 MG TAB PO SCH (08:58)
[2017-09-05] MEDS: PANTOPRAZOLE SOD 40 MG IV VIAL IVP SCH ×2 (08:58→21:02)
[2017-09-05] MEDS: ONDANSETRON 4 MG/2 ML VIAL IVP PRN ×2 (09:06→17:12)
[2017-09-05] MEDS: DICYCLOMINE HCL 10 MG CAP PO SCH ×4 (09:07→21:03)
[2017-09-05 11:43] VITALS: BP 143/98
[2017-09-05] MEDS ORDERED: METOCLOPRAMIDE 10 MG TAB PO ONE (13:00)
[2017-09-05] MEDS ORDERED: BISACODYL 5 MG TABEC PO ONE (13:00)
[2017-09-05] MEDS ORDERED: PEG (High)/E-LYTE SOLN 4000 ML PO ONE (14:00)
[2017-09-05 15:29] VITALS: BP 148/93
[2017-09-05] MEDS: NICOTINE INH SYSTEM 10 MG/INH INH PRN ×3 (17:13→22:40)
[2017-09-05 20:02] VITALS: BP 175/115
[2017-09-06] VITALS (12 sets, daily range): BP systolic 146–211; BP diastolic 91–131
[2017-09-06] MEDS: KETOROLAC 30 MG/ML VIAL IVP SCH ×2 (02:24→08:23)
[2017-09-06] MEDS: PIPERACILLIN/TAZO*3.375GM VIAL 3.375 GM in NS(*) 0.9% 100 ML ADDVANT BAG 100 ML IVPB SCH ×3 (04:32→16:25)
[2017-09-06] MEDS: SUCRALFATE 1 GM TAB PO SCH (05:45)
[2017-09-06] MEDS ORDERED: LIDOCAINE MPF 1% 5 ML VIAL ONE (07:02)
[2017-09-06] MEDS ORDERED: PROPOFOL EMUL(*) 10MG/ML 20 ML 60 ML ONE (07:02)
[2017-09-06] MEDS: PANTOPRAZOLE SOD 40 MG IV VIAL IVP SCH (08:23)
[2017-09-06] MEDS: DICYCLOMINE HCL 10 MG CAP PO SCH ×3 (08:44→16:27)
[2017-09-06] MEDS: LISINOPRIL 10 MG TAB PO SCH ×2 (08:44→13:02)
[2017-09-06] MEDS: DOCUSATE SODIUM 100 MG CAP PO SCH (08:44)
[2017-09-06] MEDS ORDERED: LR(*) 1000 ML BAG 1,000 ML ONE (09:25)
--- NOTE | 2017-09-06 09:40 | Post Operative Progress Note ---
Post Operative Progress Note Date: Sep 06, 2017 Time: 11:12 Surgeon: diane Anesthesia: dr carr Pre-Op Diagnosis: diverticulitis Post-Op Diagnosis: sigmoid diverticulosis with minimal erythema at 25 cm. 1 mm polyp in cecum and 3 mm polyp at 55 cm Procedure(s): colonoscopy and polypectomy NARESH WOOD MD Sep 06, 2017 09:40
[2017-09-06] MEDS ORDERED: amLODIPine BESYL(*) 5 MG TAB PO SCH (11:35)
--- NOTE | 2017-09-06 16:23 | Hospitalist Progress Note ---
Subjective Progress Notes Subjective The patient's BP remains high on her usual BP med, lisinopril. She inadvertently was placed on amlodipine on admission due to a med rec error and her BP was much better while on this med. Physical Exam Vital Signs Date Time Temp Pulse Resp B/P (MAP) Pulse Ox O2 Delivery O2 Flow Rate FiO2 09/06/17 12:00 64 18 95 09/06/17 12:00 97.8 191/117 (141) Nasal Cannula 1.0 Intake and Output 09/07/17 06:59 Intake Total 400 ml Output Total 250 ml Balance 150 ml IV Total 400 ml Output Urine Total 250 ml General Appearance: Alert, Awake, No Acute Distress, Other (Hair is bright purple.) Neuro: No Gross deficits Extremities: Other (bruising over forearms.) Integumentary: Generalized Fragile Skin Psych: Alert & Oriented X3, Appropriate Mood & Affect Result Diagram: 09/03/17 1605 09/03/17 2459 Assessment and Plan Problems: (1) Essential hypertension Status: Chronic Assessment & Plan: At this point, we will continue her lisinopril 10mg daily and add back the amlodipine. Will plan on monitoring her BPs while she is here. I advised her after discharge she would need to follow up with her PCP regarding her BP (and possible DIMA/nocturnal hypoxia). She will most likely need some further modifications of her regimen, but this could be done as an outpatient. (2) Hypoxia Status: Acute Assessment & Plan: She may have DIMA or possibly just nocturnal hypoxia. I advised her she would need to follow up with her PCP very closely regarding this and may need to resume nighttime oxygen. She may need a sleep study as well. Time Spent on Plan of Care: < 30 min Exam Sepsis Risk: No Definite Risk ELIJAH CRAIG MD Sep 06, 2017 16:23
[2017-09-06] MEDS ORDERED: AMLO-99 PO (16:25)
[2017-09-06] MEDS ORDERED: LISI-362 PO (16:26)
[2017-09-06] MEDS: NICOTINE INH SYSTEM 10 MG/INH INH PRN (16:27)
[2017-09-06] MEDS ORDERED: DICY20TA70 PO (17:21)
[2017-09-06] MEDS ORDERED: HYDR-4309 PO (17:21)
--- NOTE | 2017-09-06 17:23 | Hospitalist Depart ---
Discharge Summary Reason for Hosp/Final Diag: (1) Diverticulitis Status: Acute Hospital Course & Plan: her picture is a little confusing. her pain and tenderness indicate ongoing diverticulitis but her wbc is normal and ct suggests significant improvement since last ct. will treat with iv antibiotics and analgesia and see how she progresses. 09/04/17 will treat her for possible ulcer as a cause for her nausea and vomiting. try increasing diet. will consult hospitalist for htn 09/05/17 will check a ua. will probably need a colonoscopy. will give her a bowel prep today. vital signs, lab and ct look good. Departure Weight (Pounds): 182 Result Diagram: 09/03/17 1605 09/03/17 1659 Condition: Improved Discharge: Home Discharge Instructions Home Meds Active Scripts Hydrocodone Bit/Acetaminophen (NORCO 5-325 TABLET) 1 Each Tablet, 1 EACH PO Q6H Y for PAIN, #20 TAB Prov:NARESH WOOD MD 09/06/17 Ondansetron (ZOFRAN ODT) 4 Mg Tab.rapdis, 4 MG PO Q6H Y for NAUSEA/VOMITING, # 20 TAB.PRETTY Prov:NICOLÁS TSE 08/24/17 Oxycodone Hcl/Acetaminophen (PERCOCET 5-325 MG TABLET) 1 Each Tablet, 1 EACH PO Q4-6H Y for PAIN, #20 TAB Prov:NICOLÁS TSE 08/24/17 Amoxicillin/Pot Clav 875-125 Mg Tab (AUGMENTIN 875-125 TABLET) 1 Each Tablet, 1 TAB PO TID, #42 TAB Prov:NICOLÁS TSE 08/24/17 Amlodipine Besylate (NORVASC) 10 Mg Tablet, 1 TAB PO QDAY, #30 TAB Prov:LINDSEY LEON MD 04/09/16 Reported Medications Lisinopril (LISINOPRIL) 10 Mg Tablet, 10 MG PO QDAY, TAB 09/06/17 Diet: High Fiber Activity: As Tolerated Special Instructions: fiber laxative daily stay well hydrated follow up with primary care for htn and possible sleep apnea Venous Thromboembolism Antithrombotics Is Pt On Any Antithrombotics?: No NARESH WOOD MD Sep 06, 2017 17:23
--- NOTE | 2017-09-06 20:07 | OPERATIVE REPORT 1 ---
EVENT DATE: September 06, 2017 SURGEON: Jacky Lou MD ANESTHESIOLOGIST: Rosalio Peters MD ANESTHESIA: Sedation. PREOPERATIVE DIAGNOSIS Diverticulitis. POSTOPERATIVE DIAGNOSES 1. Sigmoid diverticulosis, minimal inflammation. 2. A 1 mm polyp in the cecum. 3. A 3 mm polyp at 55 cm. PROCEDURE PERFORMED Colonoscopy with polypectomy. DESCRIPTION OF PROCEDURE Patient was placed in the left lateral decubitus position and given intravenous sedation. Perianal examination was unremarkable. No prolapsing or thrombosed hemorrhoids. No fissures or fistulas. Digital exam was unremarkable. Flexible colonoscope was inserted and advanced to the cecum. She had an excellent bowel prep. The ileocecal valve and base of the cecum were identified. In the cecum, there was a small, 1 mm projection. This was removed with the cold cup. The rest of the cecum, right colon, and transverse colon were normal. Descending colon was normal. In the sigmoid colon, she had diverticula. At about 25 cm, she had an area with some slight redness, but no purulent material. No narrowing of the colon. The colon did not feel especially stiff in this area, but there was a small amount of redness. Distal to this, it was normal. Rectum was normal. Scope was retroflexed. That appeared to be normal. [facility]
[2017-09-07] MEDS ORDERED: PANTOPRAZOLE SOD 40 MG TABEC PO SCH (09:00)
== END 2017-09-06 17:56 | disposition home or self-care (01) | DRG 392 ==
LOC: MED 15:16
PROVIDERS: ADMIT Surgery; ATTEND Surgery
PROC: 0DBH8ZX Excision of Cecum, Via Natural or Artificial Opening Endoscopic, Diagnostic (ICD-10-PCS; principal; 2017-09-06 11:35)
DX: K57.30 Diverticulosis of large intestine without perforation or abscess without bleeding (principal); K92.1 Melena; D12.0 Benign neoplasm of cecum; I10 Essential (primary) hypertension; G47.33 Obstructive sleep apnea (adult) (pediatric); F17.210 Nicotine dependence, cigarettes, uncomplicated; J45.909 Unspecified asthma, uncomplicated; R09.02 Hypoxemia; Z88.8 Allergy status to other drugs, medicaments and biological substances; Z90.49 Acquired absence of other specified parts of digestive tract; Z90.710 Acquired absence of both cervix and uterus
CPT/HCPCS: 36415; 74177; 81001; 82040; 82247; 82310; 82374; 82435; 82565; 82947; 84075; 84132; 84155; 84295; 84450; 84460; 84520; 84703; 85025; 88305; C9113; J0131; J1885; J2001; J2270; J2405; J2543; J2550; J2704; J3490; J7050; J7120; J8597; Q9967